=== PATIENT | male | born 1965 | race Caucasian/White ===

== ENCOUNTER 2021-10-12 22:22 | Emergency (ER) | payer SELFPAY ==
[~2021-10-12] VITALS: Ht 172.7 cm; Wt 68.0 kg
[2021-10-12 22:25] VITALS: BP 128/78
[2021-10-12] MEDS ORDERED: KETOROLAC TROMETHAMINE INJ 60 MG/2 ML VIAL IM ONE (23:00)
[2021-10-12] MEDS ORDERED: KETOROLAC TROMETHAMINE INJ 30 MG/ML VIAL ONE (23:01)
[2021-10-12] MEDS ORDERED: CEPH500T PO (23:43)
--- NOTE | 2021-10-12 23:50 | NUR ---
PT REFUSED TO SIGN DC PAPER WORK. PT ambulatory with a steady gait.
== END 2021-10-12 23:50 | disposition home or self-care (01) ==
LOC: ER 22:24
DX: L03.012 Cellulitis of left finger (principal); Z79.899 Other long term (current) drug therapy
CPT/HCPCS: 73130; 96372; 99283; J1885

== ENCOUNTER 2022-10-05 23:25 | Emergency (ER) | payer BC, OTHER ==
[~2022-10-05] VITALS: Ht 177.8 cm; Wt 77.1 kg
[~2022-10-05 23:25] MED LIST: CEPH500T PO
[2022-10-05 23:41] VITALS: BP 110/68
[2022-10-05] MEDS ORDERED: IBUPROFEN 400 MG TABLET ONE (23:56)
[2022-10-06] MEDS ORDERED: IBUPROFEN 400 MG TABLET PO ONE (00:30)
[2022-10-06] MEDS ORDERED: IBUP-1955 PO (23:16)
== END 2022-10-06 00:01 ==
LOC: ER 23:26
DX: S76.011A Strain of muscle, fascia and tendon of right hip, initial encounter (principal); Y04.0XXA Assault by unarmed brawl or fight, initial encounter; Y93.89 Activity, other specified; Y92.89 Other specified places as the place of occurrence of the external cause; Y99.8 Other external cause status

== ENCOUNTER 2022-10-06 22:24 | Emergency (ER) | payer BC, OTHER ==
[~2022-10-06] VITALS: Ht 180.3 cm; Wt 81.6 kg
--- NOTE | 2022-10-06 22:47 | NUR ---
PER ROSA, PT IS NO LONGER IN THEIR CUSTODY
--- NOTE | 2022-10-06 23:05 | NUR ---
CANNON PINION ADJUSTER AT PT'S BEDSIDE
--- NOTE | 2022-10-06 23:05 | NUR ---
PER DR. TAYLER CARLIN; "PT WANTS TO CANCEL XRAY" DR. TAYLER CARLIN AWARE Addendum: 10/06/22 at [id number]IP [address]. TAYLER CARLIN; "PT WANTS TO CANCEL XRAY" RADIOLOGY AWARE
[2022-10-06] MEDS ORDERED: IBUP-1955 PO (23:16)
[2022-10-06 23:27] VITALS: BP 121/91
--- NOTE | 2022-10-06 23:27 | NUR ---
Patient discharged to home in stable condition. Written and verbal after care instructions given. Patient verbalizes understanding of instruction.
[2022-10-06] MEDS ORDERED: IBUPROFEN 400 MG TABLET PO ONE (23:30)
== END 2022-10-06 23:28 | disposition home or self-care (01) ==
LOC: ER 22:27
DX: S39.013A Strain of muscle, fascia and tendon of pelvis, initial encounter (principal); Y08.89XA Assault by other specified means, initial encounter; Y93.89 Activity, other specified; Y92.89 Other specified places as the place of occurrence of the external cause; Y99.8 Other external cause status

== ENCOUNTER 2023-10-21 14:47 | Emergency (ER) | payer BC, MEDICAID ==
[~2023-10-21] VITALS: Ht 180.3 cm; Wt 80.7 kg
[~2023-10-21 14:47] MED LIST changes: +IBUP-1955 PO
[2023-10-21] MEDS ORDERED: diphenhydrAMINE HCL 50 MG/ML VIAL ONE (15:33)
[2023-10-21] MEDS ORDERED: ONDANSETRON HCL/PF 4 MG/2 ML VIAL ONE (15:33)
[2023-10-21] MEDS: IV NS 0.9% 1,000 ML BAG IV ONE (15:46)
[2023-10-21] MEDS: diphenhydrAMINE HCL 50 MG/ML VIAL IV ONE (15:46)
[2023-10-21] MEDS: ONDANSETRON HCL/PF 4 MG/2 ML VIAL IVP ONE (15:47)
[2023-10-21 16:11] LABS: BASOPHILS % (AUTO) 0.3 % (0.0-2.0); EOSINOPHILS % (AUTO) 0.3 % (0.0-6.0); HEMATOCRIT 42 % (39-51); HEMOGLOBIN 13.7 g/dL (13.5-17.5); LYMPHOCYTES % (AUTO) 13.6 % (20.0-44.0); MEAN CORPUSCULAR HEMOGLOBIN 27 PG (26.0-33.0); MEAN CORPUSCULAR HGB CONC 33 g/dl (31.0-36.0); MEAN CORPUSCULAR VOLUME 83 fL (80-96); MONOCYTES # (AUTO) 0.3 K/uL (0.1-1.30); MONOCYTES % (AUTO) 4.1 % (2.0-12.0); NEUTROPHILS # (AUTO) 6.1 K/uL (1.8-8.9); NEUTROPHILS % (AUTO) 81.7 % (43.0-81.0); PLATELET COUNT (AUTO) 258 K/uL (150-450); RED BLOOD CELL COUNT(AUTO) 5.02 MIL/uL (4.5-6.0); RED CELL DISTRIBUTION WIDTH 13.8 % (11.5-15.0); WHITE BLOOD COUNT (AUTO) 7.5 K/uL (4.3-11.0)
[2023-10-21 16:31] LABS: CALCIUM, SERUM 8.4 mg/dL (8.5-10.1); CREATININE 0.8 mg/dL (0.6-1.3); POTASSIUM 4.5 mmol/L (3.5-5.1)
[2023-10-21 16:35] LABS: ALBUMIN 3.5 g/dL (3.4-5.0); BILIRUBIN,DIRECT 0.1 mg/dL (0.0-0.2); BILIRUBIN,TOTAL 0.4 mg/dL (0.2-1.0); TOTAL PROTEIN, SERUM 7.7 g/dL (6.4-8.2)
[2023-10-21] MEDS ORDERED: IV NS 0.9% 250 ML IV ONE (16:40)
[2023-10-21] MEDS ORDERED: IOHEXOL-350 100 ML VIAL IV ONE (16:40)
[2023-10-21] MEDS ORDERED: ASPIRIN 325 MG TABLET ONE (17:05)
[2023-10-21] MEDS: ASPIRIN 325 MG TABLET PO ONE (17:08)
[2023-10-21] MEDS ORDERED: ACETAMINOPHEN ES 500 MG TABLET ONE (22:21)
[2023-10-21] MEDS: ACETAMINOPHEN ES 500 MG TABLET PO ONE (22:29)
[2023-10-22 02:29] VITALS: BP 139/99; TEMP 98.3; O2SAT 97
== END 2023-10-22 02:30 | disposition short-term general hospital (02) ==
LOC: ER 14:52
DX: I63.9 Cerebral infarction, unspecified (principal); R11.2 Nausea with vomiting, unspecified; Z20.822 Contact with and (suspected) exposure to COVID-19
CPT/HCPCS: 99285; 70498; 96374; 71045; 96361; 96375; 87426; 93005; 87804 ×2; 70496; 85025; 80048; 80076; 36415; 70450; J1200; J2405; J7030; J7050; Q9967; C9803

== ENCOUNTER 2024-11-29 23:08 | Emergency (ER) | payer BC, MEDICAID ==
[~2024-11-29] VITALS: Ht 167.6 cm; Wt 90.7 kg
[2024-11-29] MEDS ORDERED: IBUPROFEN 400 MG TABLET ONE (23:32)
[2024-11-29] MEDS: IBUPROFEN 400 MG TABLET PO ONE (23:33)
[2024-11-29] MEDS ORDERED: IBUP-1957 PO (23:52)
[2024-11-29] MEDS ORDERED: AMOX-430 PO (23:52)
[2024-11-30] MEDS ORDERED: AMOX/CLAVULANATE 875 MG TABLET ONE (00:06)
[2024-11-30] MEDS: AMOX/CLAVULANATE 875 MG TABLET PO ONE (00:09)
[2024-11-30 00:37] VITALS: BP 150/90; TEMP 98.2; O2SAT 95
== END 2024-11-30 00:38 | disposition home or self-care (01) ==
LOC: ER 23:08
DX: S02.2XXA Fracture of nasal bones, initial encounter for closed fracture (principal); S01.511A Laceration without foreign body of lip, initial encounter; Z79.1 Long term (current) use of non-steroidal anti-inflammatories (NSAID); Y04.2XXA Assault by strike against or bumped into by another person, initial encounter; Y93.89 Activity, other specified; Y92.89 Other specified places as the place of occurrence of the external cause; Y99.8 Other external cause status
CPT/HCPCS: 70450-TC; 70486-TC; 72125-TC

== ENCOUNTER 2025-03-12 15:32 | Emergency (ER) | payer MEDICAID ==
[~2025-03-12] VITALS: Ht 172.7 cm; Wt 98.9 kg
[~2025-03-12 15:32] MED LIST changes: +AMOX-430 PO; -CEPH500T PO; -IBUP-1955 PO; +IBUP-1957 PO
[2025-03-12 15:35] VITALS: BP 112/60; TEMP 98.3
[2025-03-12] MEDS ORDERED: KETOROLAC TROMETHAMINE INJ 30 MG/ML VIAL ONE (16:00)
[2025-03-12] MEDS: KETOROLAC TROMETHAMINE INJ 30 MG/ML VIAL IM ONE (16:16)
[2025-03-12] MEDS ORDERED: ACET325C7 PO (16:40)
[2025-03-12] MEDS ORDERED: IBUP-1957 PO (16:40)
[2025-03-12 16:54] VITALS: O2SAT 99
== END 2025-03-12 16:55 | disposition home or self-care (01) ==
LOC: ER 15:42
DX: S42.92XA Fracture of left shoulder girdle, part unspecified, initial encounter for closed fracture (principal); M25.512 Pain in left shoulder; F17.200 Nicotine dependence, unspecified, uncomplicated; G89.29 Other chronic pain; Z79.1 Long term (current) use of non-steroidal anti-inflammatories (NSAID); X58.XXXA Exposure to other specified factors, initial encounter; Y93.9 Activity, unspecified; Y92.89 Other specified places as the place of occurrence of the external cause; Y99.8 Other external cause status
CPT/HCPCS: 99283; 96372; 73030; J1885